=== PATIENT | female | born 1985 | race African-American/Black ===

== ENCOUNTER 2023-07-18 00:06 | Emergency (ER) | payer BC ==
[~2023-07-18] VITALS: Ht 170.2 cm; Wt 61.2 kg
[2023-07-18] MEDS: IV NS 0.9% 1,000 ML BAG IV ONE (01:11)
[2023-07-18] MEDS ORDERED: HYDROMORPHONE 1 MG/1 ML DISP.SYRIN ONE ×2 (01:13→02:53)
[2023-07-18] MEDS ORDERED: ONDANSETRON HCL/PF 4 MG/2 ML VIAL ONE (01:13)
[2023-07-18 01:14] LABS: HEMOGLOBIN 7.2 g/dL (11.5-14.8)
[2023-07-18] MEDS: HYDROMORPHONE 1 MG/1 ML DISP.SYRIN IV ONE ×2 (01:15→02:54)
[2023-07-18] MEDS: ONDANSETRON HCL/PF 4 MG/2 ML VIAL IVP ONE (01:15)
[2023-07-18 01:19] LABS: BASOPHILS # (AUTO) 0.1 K/uL (0.0-0.2); BASOPHILS % (AUTO) 0.6 % (0.0-2.0); EOSINOPHILS # (AUTO) 0.2 K/uL (0.0-0.7); EOSINOPHILS % (AUTO) 1.5 % (0.0-6.0); LYMPHOCYTES # (AUTO) 2.8 K/uL (0.8-4.8); LYMPHOCYTES % (AUTO) 17.9 % (20.0-44.0); MEAN CORPUSCULAR HEMOGLOBIN 37 PG (26.0-33.0); MEAN CORPUSCULAR HGB CONC 36 g/dl (31.0-36.0); MEAN CORPUSCULAR VOLUME 102 fL (82-100); MONOCYTES # (AUTO) 1.1 K/uL (0.1-1.30); MONOCYTES % (AUTO) 7.2 % (2.0-12.0); NEUTROPHILS # (AUTO) 11.4 K/uL (1.8-8.9); NEUTROPHILS % (AUTO) 72.8 % (43.0-81.0); PLATELET COUNT (AUTO) 380 K/uL (150-450); RED CELL DISTRIBUTION WIDTH 22.1 % (11.5-15.0); WHITE BLOOD COUNT (AUTO) 15.7 K/uL (4.3-11.0)
[2023-07-18 01:26] LABS: INR 1.05 (0.91-1.10); PROTHROMBIN TIME 11.1 SECS (9.2-11.1); RED BLOOD CELL COUNT(AUTO) 1.96 MIL/uL (4.0-5.2)
[2023-07-18 01:27] LABS: ALBUMIN 4.9 g/dL (3.4-5.0); BILIRUBIN,DIRECT 0.4 mg/dL (0.0-0.2); BILIRUBIN,TOTAL 5.6 mg/dL (0.2-1.0); CALCIUM, SERUM 9.2 mg/dL (8.5-10.1); CREATININE 0.7 mg/dL (0.6-1.3); HEMATOCRIT 20 % (33-45); TOTAL PROTEIN, SERUM 7.8 g/dL (6.4-8.2)
[2023-07-18 03:07] LABS: ANISOCYTOSIS 2+; PLATELET ESTIMATE ADEQUATE
[2023-07-18 04:55] LABS: PREGNANCY TEST URINE QUAL NEGATIVE (NEGATIVE)
[2023-07-18 05:07] LABS: APPEARANCE,URINE CLEAR (CLEAR); BILIRUBIN,URINE NEGATIVE (NEGATIVE); BLOOD, URINE NEGATIVE Ery/uL (NEGATIVE); COLOR,URINE DARK YELLOW (YELLOW); KETONES,URINE NEGATIVE (NEGATIVE); LEUKOCYTE ESTERASE ,URINE NEGATIVE (NEGATIVE); NITRITE, URINE NEGATIVE (NEGATIVE); PH,URINE 5.5 (5.0-8.0); PROTEIN,URINE NEGATIVE (NEGATIVE); UGLUCOSE NEGATIVE (NEGATIVE); UROBILINOGEN,URINE 0.2 EU/dL (0.2)
[2023-07-18] MEDS ORDERED: diphenhydrAMINE HCL 50 MG/ML VIAL ONE (06:09)
[2023-07-18] MEDS: diphenhydrAMINE HCL 50 MG/ML VIAL IV ONE (06:09)
[2023-07-18 06:48] VITALS: TEMP 98
[2023-07-18] MEDS ORDERED: MORPHINE SULFATE INJ 4 MG/ML DISP.SYRIN ONE (09:26)
[2023-07-18] MEDS: MORPHINE SULFATE INJ 2 MG/ML DISP.SYRIN IV ONE (09:31)
[2023-07-18] MEDS ORDERED: TRAM50TA2 PO (09:44)
[2023-07-18 10:39] VITALS: BP 107/72; O2SAT 99
== END 2023-07-18 10:39 | disposition home or self-care (01) ==
LOC: ER 00:17
DX: D57.00 Hb-SS disease with crisis, unspecified (principal); K80.20 Calculus of gallbladder without cholecystitis without obstruction; Z20.822 Contact with and (suspected) exposure to COVID-19
CPT/HCPCS: 36415; 76705-TC; 80048-TC; 80076-TC; 83690-TC; 84703-TC; 85025-TC; 85730-TC; 86850-TC; J1170; J1200; J2270; J2405; J7030; P9016

== ENCOUNTER 2024-07-18 20:23 | Emergency (ER) | payer BC, MEDICAID, MEDICARE ==
[~2024-07-18] VITALS: Ht 167.6 cm; Wt 58.1 kg
[~2024-07-18 20:23] MED LIST: TRAM50TA2 PO
[2024-07-18] MEDS: ONDANSETRON HCL/PF 4 MG/2 ML VIAL IVP ONE (21:00)
[2024-07-18] MEDS: HYDROMORPHONE INJ 2 MG/ML DISP.SYRIN IV ONE (21:00)
[2024-07-18] MEDS: IV NS 0.9% 1,000 ML BAG IV ONE (21:00)
[2024-07-18 21:35] LABS: BASOPHILS # (AUTO) 0.1 K/uL (0.0-0.2); BASOPHILS % (AUTO) 0.8 % (0.0-2.0); EOSINOPHILS # (AUTO) 0.2 K/uL (0.0-0.7); EOSINOPHILS % (AUTO) 2.1 % (0.0-6.0); HEMATOCRIT 21 % (33-45); HEMOGLOBIN 7.4 g/dL (11.5-14.8); LYMPHOCYTES # (AUTO) 3.8 K/uL (0.8-4.8); LYMPHOCYTES % (AUTO) 42.5 % (20.0-44.0); MEAN CORPUSCULAR HEMOGLOBIN 40 PG (26.0-33.0); MEAN CORPUSCULAR HGB CONC 35 g/dl (31.0-36.0); MEAN CORPUSCULAR VOLUME 112 fL (82-100); MONOCYTES # (AUTO) 1.1 K/uL (0.1-1.30); NEUTROPHILS # (AUTO) 3.7 K/uL (1.8-8.9); NEUTROPHILS % (AUTO) 41.6 % (43.0-81.0); PLATELET COUNT (AUTO) 336 K/uL (150-450); RED CELL DISTRIBUTION WIDTH 16.6 % (11.5-15.0); WHITE BLOOD COUNT (AUTO) 8.8 K/uL (4.3-11.0)
[2024-07-18 21:38] LABS: RED BLOOD CELL COUNT(AUTO) 1.86 MIL/uL (4.0-5.2)
[2024-07-18 21:43] LABS: CALCIUM, SERUM 8.9 mg/dL (8.5-10.1); CREATININE 0.8 mg/dL (0.6-1.3); POTASSIUM 3.7 mmol/L (3.5-5.1)
[2024-07-18 21:54] LABS: ALBUMIN 4.7 g/dL (3.4-5.0); BILIRUBIN,DIRECT 0.4 mg/dL (0.0-0.2); BILIRUBIN,TOTAL 10.4 mg/dL (0.2-1.0); TOTAL PROTEIN, SERUM 7.2 g/dL (6.4-8.2)
[2024-07-18] MEDS ORDERED: IOHEXOL-350 100 ML VIAL IV ONE (21:57)
[2024-07-18] MEDS ORDERED: IV NS 0.9% 250 ML IV ONE (21:57)
[2024-07-18] MEDS ORDERED: ONDANSETRON HCL/PF 4 MG/2 ML VIAL ONE (22:14)
[2024-07-18] MEDS ORDERED: HYDROMORPHONE 1 MG/1 ML DISP.SYRIN ONE (22:15)
[2024-07-18 23:25] LABS: ANISOCYTOSIS 2+; BASOPHILS % (MANUAL) 0 % (0.0-2.0); EOSINOPHILS % (MANUAL) 2 % (0-4); LYMPHOCYTES % (MANUAL) 45 % (16-48); MONOCYTES % (MANUAL) 13 % (0-11.0); NEUTROPHILS % (MANUAL) 40 (42-76); PLATELET ESTIMATE ADEQUATE
[2024-07-19 02:25] LABS: APPEARANCE,URINE CLEAR (CLEAR); BILIRUBIN,URINE NEGATIVE (NEGATIVE); BLOOD, URINE NEGATIVE Ery/uL (NEGATIVE); COLOR,URINE YELLOW (YELLOW); KETONES,URINE NEGATIVE (NEGATIVE); LEUKOCYTE ESTERASE ,URINE TRACE (NEGATIVE); NITRITE, URINE NEGATIVE (NEGATIVE); PH,URINE 5.5 (5.0-8.0); PROTEIN,URINE NEGATIVE (NEGATIVE); UGLUCOSE NEGATIVE (NEGATIVE); UROBILINOGEN,URINE 0.2 EU/dL (0.2)
[2024-07-19] MEDS ORDERED: OXYC-133 PO (02:30)
[2024-07-19 02:35] LABS: ADD URINE CULTURE NO; BACTERIA,URINE Rare /HPF (None Seen); RBC,URINE 0-2 /HPF (0-2); SQUAMOUS EPITHELIAL CELL,UR Few /HPF (None Seen); WBC,URINE 0-2 /HPF (0-3)
[2024-07-19] MEDS ORDERED: HYDROMORPHONE 1 MG/1 ML DISP.SYRIN ONE (02:38)
[2024-07-19] MEDS: HYDROMORPHONE 1 MG/1 ML DISP.SYRIN IV ONE (02:39)
[2024-07-19 02:50] VITALS: BP 122/80; TEMP 98.1; O2SAT 96
[2024-07-20 05:08] LABS: *TESTOSTERONE, SERUM <3 ng/dL (8-60)
== END 2024-07-19 02:51 | disposition home or self-care (01) ==
LOC: ER 20:25
DX: R10.2 Pelvic and perineal pain (principal); D57.1 Sickle-cell disease without crisis; D64.9 Anemia, unspecified; M54.6 Pain in thoracic spine; Z60.2 Problems related to living alone
CPT/HCPCS: 99285; 74174; 96374; 76856; 96361; 96375; 85025; 80048; 80076; 81001; 36415 ×2; 84702; 96376; 84443; 84402; 84403; 85007; J1171 ×2; J2405; J7030; J7050; Q9967

== ENCOUNTER 2025-01-17 23:34 | Emergency (ER) | payer OTHER, MEDICAID ==
[~2025-01-17] VITALS: Ht 170.2 cm; Wt 61.2 kg
[~2025-01-17 23:34] MED LIST changes: +OXYC-133 PO
[2025-01-18] MEDS ORDERED: HYDROMORPHONE 1 MG/1 ML DISP.SYRIN ONE ×2 (00:41→04:54)
[2025-01-18] MEDS ORDERED: ONDANSETRON HCL/PF 4 MG/2 ML VIAL ONE (00:41)
[2025-01-18 01:05] LABS: APPEARANCE,URINE CLEAR (CLEAR); BLOOD, URINE NEGATIVE Ery/uL (NEGATIVE); LEUKOCYTE ESTERASE ,URINE NEGATIVE (NEGATIVE); NITRITE, URINE NEGATIVE (NEGATIVE); UGLUCOSE NEGATIVE (NEGATIVE)
[2025-01-18 01:07] LABS: PREGNANCY TEST URINE QUAL NEGATIVE (NEGATIVE)
[2025-01-18 01:09] LABS: PLATELET COUNT (AUTO) 165 K/uL (150-450); RED CELL DISTRIBUTION WIDTH 22.8 % (11.5-15.0); WHITE BLOOD COUNT (AUTO) 9.3 K/uL (4.3-11.0)
[2025-01-18] MEDS: IV NS 0.9% 1,000 ML BAG IV ONE (01:19)
[2025-01-18] MEDS: HYDROMORPHONE INJ 2 MG/ML DISP.SYRIN IV ONE (01:19)
[2025-01-18] MEDS: ONDANSETRON HCL/PF 4 MG/2 ML VIAL IVP ONE (01:19)
[2025-01-18 01:20] LABS: RED BLOOD CELL COUNT(AUTO) 1.64 MIL/uL (4.0-5.2)
[2025-01-18 01:21] LABS: ASPARTATE AMINOTRANSFERASE 35.0 U/L (15-37); CALCIUM, SERUM 8.8 mg/dL (8.5-10.1); CREATININE 0.6 mg/dL (0.6-1.3); SODIUM SERUM 140.0 mmol/L (136-145); TOTAL PROTEIN, SERUM 7.2 g/dL (6.4-8.2); UREA NITROGEN, BLOOD 13.0 mg/dL (7-18)
[2025-01-18 01:22] LABS: ADD URINE CULTURE NO; SQUAMOUS EPITHELIAL CELL,UR Few /HPF (None Seen)
[2025-01-18 01:27] LABS: INR 1.17 (0.91-1.10)
[2025-01-18 02:30] LABS: BASOPHILS % (MANUAL) 0 % (0.0-2.0); EOSINOPHILS % (MANUAL) 0 % (0-4); LYMPHOCYTES % (MANUAL) 33 % (16-48); MONOCYTES % (MANUAL) 8 % (0-11.0); NEUTROPHILS % (MANUAL) 59 (42-76); PLATELET ESTIMATE ADEQUATE
[2025-01-18] MEDS: HYDROMORPHONE 1 MG/1 ML DISP.SYRIN IV ONE (05:05)
[2025-01-18 06:05] VITALS: BP 118/70; TEMP 98.2; O2SAT 97
== END 2025-01-18 06:11 | disposition home or self-care (01) ==
LOC: ER 23:39
DX: D57.819 Other sickle-cell disorders with crisis, unspecified (principal); Z60.2 Problems related to living alone; Z79.899 Other long term (current) drug therapy; Z86.2 Personal history of diseases of the blood and blood-forming organs and certain disorders involving the immune mechanism
CPT/HCPCS: 99285; 96374; 96361; 36430; 96375; 96376; 85027; 80048; 83690; 80076; 84703; 85007; 81001; 36415; 85730; 86850; 86923; J2405; J7040; J1171 ×2; P9016